=== PATIENT | female | born 1965 | race Caucasian/White ===

== ENCOUNTER 2016-06-02 19:10 | Emergency (ER) | payer MEDICAID, OTHER ==
[~2016-06-02] VITALS: Ht 165.1 cm; Wt 124.7 kg
[~2016-06-02 19:10] MED LIST: NAPR-576 PO
[2016-06-02 19:25] VITALS: BP 178/109; PULSE 76; RESP 18; TEMP 98.1; O2SAT 99
[2016-06-02 19:46] VITALS: BP 176/84; PULSE 78; RESP 16; O2SAT 99
[2016-06-02] MEDS ORDERED: TRAZ300T2 PO (19:49)
[2016-06-02] MEDS ORDERED: LAMO200T PO (20:15)
[2016-06-02] MEDS ORDERED: PERM5CRE11 TOPICAL (20:42)
[2016-06-02] MEDS ORDERED: TRIAM.1%T TOPICAL (20:42)
--- NOTE | 2016-06-02 20:50 | PD ---
HPI Chief Complaint: Skin Problem Time Seen by Provider: 20:43 Travel History International Travel<30 days: No Contact w/Intl Traveler<30days: No Traveled to known affect area: No History of Present Illness HPI Patient is a 50-year-old female presenting with vertex skin rash. Presents several weeks. Beginning on the left arm but has been to the right arm, back and right lower extremity. Benadryl and topical anti-itch creams have not helped. No changes in environment or exposure to known allergens. She denies any fever, ENT/URI symptoms, difficulty breathing or cough. She is living in a motel and no one else is having similar symptoms including a partner sleeping in the same bed. She denies any recent travel or tick bites. She does have animals in the motel room but they do not have fleas. PFSH Past Medical History Arthritis: Yes Depression: Yes Diminished Hearing: No GERD: Yes Tetanus Vaccination: Unknown Influenza Vaccination: No ?: Not LMP: NONE SINCE DEC Menopausal: Yes : 2 Para: 2 Past Surgical History Section: Yes (X2) Tonsillectomy: Yes Social History Alcohol Use: Yes (socially beer) Tobacco Use: Yes (4-5 cigs a day) Substance Use: Yes (HX CRACK COCAINE; DENIES USE SINCE 2013) Allergies-Medications (Allergen,Severity, Reaction): Coded Allergies: No Known Allergies (Verified , 06/02/16) Reported Meds & Prescriptions Reported Meds & Active Scripts Active Elimite Topical (Permethrin) 5% Cream 1 Applic TOPICAL ONCE Apply from head to toe overnight and leave on for at least 8 hours and wash off in the morning, may repeat in 14 days if symptoms still present Triamcinolone Topical (Triamcinolone Acetonide) 0.1 % Oint 1 Applic TOPICAL BID PRN [address] on the face, neck or groin Reported Lamotrigine 200 Mg Tab 200 Mg PO BID Trazodone (Trazodone HCl) 300 Mg Tab 300 Mg PO HS Review of Systems General / Constitutional: No: Fever, Chills HENT: No: Headaches, Vertigo, Lightheadedness, Sore Throat, Congestion, Earache Cardiovascular: No: Chest Pain or Discomfort Respiratory: No: Cough, Shortness of Breath, Wheezing, Stridor Skin: Positive Other (see the history of present illness) Neurologic: No: Weakness Physical Exam Narrative GENERAL: Well-developed and well-nourished adult female in no acute distress. SKIN: Patient has multiple macular papular lesions to the bilateral forearms minor excoriations. No interdigital area lesions. Some lesions on the right ankle and on the abdomen and lower back. Lower back lesions have a characteristic of either flea or bedbug bites. No signs of cellulitis. Warm and dry. Good turgor without tenting. HEAD: Normocephalic and atraumatic. EYES: PERRL bilaterally, 5mm. EOMI bilaterally. No injection or icterus present. No proptosis. Lids without edema or erythema. ENT: Buccal mucosa pink and moist. Oropharynx free of erythema, tonsillar hypertrophy, masses, swelling, asymmetry and exudates. Uvula midline and airway patent. NECK: Supple, no meningeal signs. Trachea midline, no JVD. No cervical or facial lymphadenopathy. CARDIOVASCULAR: Regular rate and rhythm without murmurs, rubs, clicks or gallops. Radial and posterior tibial pulses 2+ bilaterally. No pedal edema. RESPIRATORY: Clear to auscultation bilaterally with symmetrical rise and fall, no distress or use of accessory muscles. MUSCULOSKELETAL: No gait disturbances. Patient freely moving all four extremities spontaneously. Extremities without clubbing, cyanosis, or edema. No obvious deformities. NEUROLOGIC: CN II-XII grossly intact. Awake and alert. Motor grossly within normal limits. Normal speech. PSYCHIATRIC: Appropriate mood and affect; insight and judgment normal. *Patient was examined in the presence of a nurse, Casandra, at all times* Data Data Last Documented VS Vital Signs Date Time Temp Pulse Resp B/P Pulse Ox O2 Delivery O2 Flow Rate FiO2 06/02/16 19:46 78 16 176/84 99 06/02/16 19:25 98.1 [facility] Medical Decision Making Medical Screen Exam Complete: Yes Emergency Medical Condition: Yes Differential Diagnosis Insect bite reaction versus bedbugs versus fleas versus scabies versus dermatitis versus allergic reaction Narrative Course Patient is a 50-year-old female with a pruritic rash consistent with local insect bite reaction. Increased work of breathing, no systemic symptoms. She is afebrile and nontoxic appearing. States is from fleas or bedbugs. Given that she is in a motel I will cover her with Elimite cream as well. Given a triamcinolone ointment to help with itching. Recommend washing all clothing and bedding and follow-up with PCP or her pharmaceutical laboratory technician.See discharge paperwork for further instructions. The plan was discussed with the patient who acknowledged their understanding and agreement. Reinforced the follow-up with primary care is critically important. Patient instructed on emergent conditions that should prompt return to ED. Diagnosis Primary Impression: Insect bite Qualified Code: W57.XXXA - Insect bite, initial encounter Patient Instructions: Bed Bugs (ED), General Instructions Additional Instructions: Take medications as prescribed Avoid scratching or picking at lesions Wash skin with cool water and mild soap daily Recommend washing all clothing and bedding in the hottest water settings available Follow-up with PCP or her pharmaceutical laboratory technician in 2 days Return to the ED for any acute worsening of symptoms Med/Other Pt SpecificInfo: Prescription(s) given Scripts Permethrin Topical (Elimite Topical)5% Cream1 Applic TOPICAL ONCE #1 TUBE Apply from head to toe overnight and leave on for at least 8 hours and wash off in the morning, may repeat in 14 days if symptoms still present Prov:Barbie Hill DO 06/02/16 Triamcinolone Topical 0.1 % Oint1 Applic TOPICAL BID PRN (ITCHING) [address] on the face, neck or groin Prov:Barbie Hill DO 06/02/16 Disposition: 01 DISCHARGE HOME Condition: Stable Bandar Saucedo III Jun 02, 2016 20:50
== END 2016-06-02 22:07 | disposition home or self-care (01) ==
LOC: PHEFT 19:10
DX: S50.862A Insect bite (nonvenomous) of left forearm, initial encounter (principal); S50.861A Insect bite (nonvenomous) of right forearm, initial encounter; S90.561A Insect bite (nonvenomous), right ankle, initial encounter; S30.861A Insect bite (nonvenomous) of abdominal wall, initial encounter; S30.860A Insect bite (nonvenomous) of lower back and pelvis, initial encounter; Z72.0 Tobacco use; Z87.39 Personal history of other diseases of the musculoskeletal system and connective tissue; Z86.59 Personal history of other mental and behavioral disorders; Z87.19 Personal history of other diseases of the digestive system; W57.XXXA Bitten or stung by nonvenomous insect and other nonvenomous arthropods, initial encounter
CPT/HCPCS: 99282

== ENCOUNTER 2016-06-18 15:23 | Emergency (ER) | payer MEDICAID, OTHER ==
[~2016-06-18] VITALS: Ht 165.1 cm; Wt 119.6 kg
[~2016-06-18 15:23] MED LIST changes: +LAMO200T PO; -NAPR-576 PO; +PERM5CRE11 TOPICAL; +TRAZ300T2 PO; +TRIAM.1%T TOPICAL
[2016-06-18 15:27] VITALS: BP 140/86; PULSE 81; RESP 16; TEMP 98; O2SAT 97
[2016-06-18 15:53] LABS: BLOOD, URINE TRACE (NEG); GLUCOSE,URINE NEG (NEG); KETONE, URINE NEG (NEG); NITRITE,URINE NEG (NEG); PH, URINE 5.5 (5.0-8.5)
[2016-06-18 15:59] LABS: METHOD OF COLLECTION CLEAN CATCH; URINE COLOR YELLOW (YELLW/STRAW); WBC, URINE 0-2 /hpf (0-5)
[2016-06-18 16:00] LABS: BACTERIA, URINE MOD /hpf; SQUAMOUS EPITHELIAL CELL URINE > 8 /hpf (0-5)
[2016-06-18 16:02] LABS: COMMENT (UR) CULTURE INDICATED; CULTURE IF INDICATED CULTURE INDICATED
[2016-06-18] MEDS ORDERED: PROT40TA PO (16:43)
[2016-06-18] MEDS ORDERED: ZOFR4TAB PO (16:43)
--- NOTE | 2016-06-18 16:43 | PD ---
HPI Chief Complaint: GI Complaint Time Seen by Provider: 16:25 Travel History International Travel<30 days: No Contact w/Intl Traveler<30days: No Traveled to known affect area: No History of Present Illness HPI 50-year-old female here for evaluation of nausea, vomiting, and diarrhea. Symptoms have been going on for last 3 days. The patient states that she actually feels improved today, however her work is requiring her to have a work note to return to work. She has had some reflux-type symptoms for which she is taking Pepto-Bismol with only mild relief of symptoms. Mild intermittent abdominal cramping. History of 2 sections, no other abdominal surgeries. She has not noted any fevers or chills. Emesis and bowel movements are nonbloody. No chest pain or dyspnea. The patient reports similar symptoms in the past and believes she may have the flu. PFSH Past Medical History Arthritis: Yes Depression: Yes Diminished Hearing: No GERD: Yes Influenza Vaccination: Yes ?: Not LMP: MENOPAUSE Menopausal: Yes : 2 Para: 2 Past Surgical History Section: Yes (X2) Tonsillectomy: Yes Social History Alcohol Use: Yes (socially beer) Tobacco Use: Yes (4-5 cigs a day) Substance Use: Yes (HX CRACK COCAINE; DENIES USE SINCE 2013) Allergies-Medications (Allergen,Severity, Reaction): Coded Allergies: No Known Allergies (Verified , 06/18/16) Reported Meds & Prescriptions Reported Meds & Active Scripts Active No Active Prescriptions or Reported Medications Review of Systems Except as stated in HPI: all other systems reviewed are Neg Physical Exam Narrative GENERAL: Well-developed, well-nourished, comfortable, no acute distress. SKIN: Warm and dry. HEAD: Atraumatic. Normocephalic. EYES: Pupils equal and round. No scleral icterus. No injection or drainage. ENT: Mucous membranes pink and moist. NECK: Trachea midline. No JVD. CARDIOVASCULAR: Regular rate and rhythm. No murmur appreciated. RESPIRATORY: No accessory muscle use. Clear to auscultation. Breath sounds equal bilaterally. GASTROINTESTINAL: Abdomen soft, non-tender, nondistended. MUSCULOSKELETAL: No obvious deformities. No clubbing. No cyanosis. No edema. NEUROLOGICAL: Awake and alert. No obvious cranial nerve deficits. Motor grossly within normal limits. Normal speech. PSYCHIATRIC: Appropriate mood and affect; insight and judgment normal. Data Data Last Documented VS Vital Signs Date Time Temp Pulse Resp B/P Pulse Ox O2 Delivery O2 Flow Rate FiO2 06/18/16 15:27 98.0 81 16 140/86 97 Orders Urinalysis - C+S If Indicated (06/18/16 15:36) Ed Urine Pregnancytest Poc (06/18/16 15:36) Urine Culture (06/18/16 15:42) Labs Laboratory Tests Test 06/18/16 15:42 Urine Collection Type CLEAN CATCH Urine Color YELLOW Urine Turbidity CLEAR Urine pH 5.5 Urine Specific [place] 1.030 Urine Protein TRACE mg/dL Urine Glucose (UA) NEG mg/dL Urine Ketones NEG mg/dL Urine Occult Blood TRACE Urine Nitrite NEG Urine Bilirubin NEG Urine Leukocyte Esterase NEG Urine RBC 4-9 /hpf Urine WBC 0-2 /hpf Urine Squamous Epithelial > 8 /hpf Cells Urine Amorphous Sediment FEW Urine Bacteria MOD /hpf Microscopic Urinalysis Comment CULTURE INDICATED Urine Collection Time 15:42 MDM Medical Decision Making Medical Screen Exam Complete: Yes Emergency Medical Condition: Yes Medical Record Reviewed: Yes Differential Diagnosis Gastroenteritis, influenza, viral illness, UTI, dehydration Narrative Course Vital signs show heart rate 81, blood pressure 140/86, pulse ox 97% on room air , oral temp of 98F. The patient is very well-appearing and she is resting comfortably. Her abdominal exam is benign. She tells me that she is mainly here to have a work note to return to work tomorrow. She states although her symptoms of it going on for last 3 days, she is having some improvement today and feels like she may be able to return to work tomorrow. Clinically she is not dehydrated. Plan is to discharge her home with a prescription for Zofran and Protonix. PMD follow- up this week. Patient informed on when to return to the emergency department. Diagnosis Primary Impression: Gastroenteritis Referrals: Primary Care Physician 3 days Additional Instructions: Follow-up with a primary care physician this week. Stay hydrated with plenty of fluids. Return to the emergency department for worsening symptoms or any other concerns. Scripts Ondansetron (Zofran)4 Mg Tab4 Mg PO Q8HR PRN (NAUSEA OR VOMITING) #15 TAB Ref 0 Prov:Erik Durham MD 06/18/16 Pantoprazole (Protonix)40 Mg Tab40 Mg PO DAILY #30 TAB Ref 0 Prov:Erik Durham MD 06/18/16 Disposition: 01 DISCHARGE HOME Condition: Stable Erik Durham MD Jun 18, 2016 16:43
== END 2016-06-18 16:58 | disposition home or self-care (01) ==
LOC: PHED 15:23 → PHEFT 16:58
DX: K52.9 Noninfective gastroenteritis and colitis, unspecified (principal)
CPT/HCPCS: 81001; 84703; 87086; 99284

== ENCOUNTER 2016-08-08 22:44 | Emergency (ER) | payer MEDICAID, OTHER ==
[~2016-08-08 22:44] MED LIST changes: -LAMO200T PO; -PERM5CRE11 TOPICAL; +PROT40TA PO; -TRAZ300T2 PO; -TRIAM.1%T TOPICAL; +ZOFR4TAB PO
[2016-08-08 22:55] VITALS: BP 135/79; PULSE 80; RESP 20; TEMP 99; O2SAT 97
--- NOTE | 2016-08-10 14:02 | EKG ---
Date Performed: 08/08/2016 Time Performed: 23:09:02 PTAGE: 50 years EKG: Sinus rhythm . Since previous tracing, no significant change noted Normal ECG PREVIOUS TRACING : 12/31/2015 08.38 DOCTOR: Yuridia Huff Interpretating Date/Time 08/10/2016 14:01:32
== END 2016-08-09 01:37 | disposition left against medical advice (07) ==
LOC: PHED 22:44
DX: R12 Heartburn (principal); Z53.21 Procedure and treatment not carried out due to patient leaving prior to being seen by health care provider
CPT/HCPCS: 93005; 99281

== ENCOUNTER 2016-09-29 17:41 | Emergency (ER) | payer MEDICAID, OTHER ==
[~2016-09-29] VITALS: Ht 165.1 cm; Wt 122.0 kg
[2016-09-29 17:54] VITALS: BP 138/94; PULSE 78; RESP 16; TEMP 98.1; O2SAT 97
[2016-09-29] MEDS ORDERED: ROBA500T PO (18:56)
[2016-09-29] MEDS ORDERED: IBUP800T23 PO (18:56)
--- NOTE | 2016-09-29 18:56 | PD ---
HPI Chief Complaint: Musculoskeletal Complaint Time Seen by Provider: 18:30 Travel History International Travel<30 days: No Contact w/Intl Traveler<30days: No Traveled to known affect area: No History of Present Illness HPI 50-year-old female presents emergency department for evaluation of left low back pain radiating down into the left leg. She reports history of arthritis and commonly has pain in most of her joints. She denies any injury. She reports the pain has been present for about 4 days. She denies any numbness or tingling in the legs, incontinence, difficulty ambulating or weakness of any extremity. She describes the pain as aching/burning originating in the left low back radiating down the leg, severity 5 out of 10. Reports she is not taking any current medications. PFSH Past Medical History Arthritis: Yes Depression: Yes Diminished Hearing: No GERD: Yes ?: Not Menopausal: Yes : 2 Para: 2 Past Surgical History Section: Yes (X2) Tonsillectomy: Yes Social History Alcohol Use: Yes (socially beer) Tobacco Use: Yes (4-5 cigs a day) Substance Use: No (HX CRACK COCAINE; DENIES USE SINCE 2013) Allergies-Medications (Allergen,Severity, Reaction): Coded Allergies: No Known Allergies (Verified , 09/29/16) Reported Meds & Prescriptions Reported Meds & Active Scripts Active No Active Prescriptions or Reported Medications Review of Systems Except as stated in HPI: all other systems reviewed are Neg Physical Exam Narrative GENERAL: [-Alert, well-nourished female in no acute distress.] SKIN: Focused skin assessment warm/dry. No rashes. HEAD: Atraumatic. Normocephalic. EYES: Pupils equal and round. No scleral icterus. No injection or drainage. ENT: No nasal bleeding or discharge. Mucous membranes pink and moist. NECK: Trachea midline. No JVD. CARDIOVASCULAR: Regular rate and rhythm. No murmur appreciated. RESPIRATORY: No accessory muscle use. Clear to auscultation. Breath sounds equal bilaterally. GASTROINTESTINAL: Abdomen soft, non-tender, nondistended. Hepatic and splenic margins not palpable. BACK: No midline spinal tenderness. Tender to the left lumbar paraspinous muscles. Negative straight leg raise. MUSCULOSKELETAL: No obvious deformities. No clubbing. No cyanosis. No edema. 2+ distal pulses. Normal sensation in lower extremity. 2+ DTRs. Normal dorsiflexion and plantarflexion. NEUROLOGICAL: Awake and alert. No obvious cranial nerve deficits. Motor grossly within normal limits. Normal speech. PSYCHIATRIC: Appropriate mood and affect; insight and judgment normal. Data Data Last Documented VS Vital Signs Date Time Temp Pulse Resp B/P Pulse Ox O2 Delivery O2 Flow Rate FiO2 09/29/16 17:54 98.1 78 16 138/94 97 MDM Medical Decision Making Medical Screen Exam Complete: Yes Emergency Medical Condition: Yes Differential Diagnosis Lumbar strain, sciatica, leg pain Narrative Course 50-year-old female with past medical history arthritis reports a 4 day history of left low back pain radiating down into the left leg. She denies incontinence , numbness or weakness, or change in sensation of the left extremity. Physical exam is consistent with sciatica. Patient will be put on NSAIDs and muscle relaxers instructed to follow with her primary care doctor Diagnosis Primary Impression: Sciatica Qualified Code: M54.32 - Sciatica of left side Referrals: Primary Care Physician Patient Instructions: General Instructions, Sciatica (ED) Scripts Methocarbamol (Robaxin)500 Mg [id number] Mg PO TID PRN (MUSCLE SPASM) #12 TAB Prov:Deonna Byrd 09/29/16 Ibuprofen 800 Mg [id number] Mg PO Q8H PRN (Pain/Inflammation) #30 TAB Prov:Deonna Byrd 09/29/16 Disposition: 01 DISCHARGE HOME Condition: Stable Deonna Byrd September 29, 2016 18:56
== END 2016-09-29 19:10 | disposition home or self-care (01) ==
LOC: PHED 17:41 → PHEFT 19:10
DX: M54.32 Sciatica, left side (principal); F32.9 Major depressive disorder, single episode, unspecified; K21.9 Gastro-esophageal reflux disease without esophagitis; M19.90 Unspecified osteoarthritis, unspecified site; F17.210 Nicotine dependence, cigarettes, uncomplicated
CPT/HCPCS: 99283

== ENCOUNTER 2017-05-05 12:12 | Emergency (ER) | payer MEDICAID ==
[~2017-05-05] VITALS: Ht 162.6 cm; Wt 116.4 kg
[~2017-05-05 12:12] MED LIST changes: +IBUP1TAB7 PO; -PROT40TA PO; +ROBA500T PO; -ZOFR4TAB PO
[2017-05-05 12:20] VITALS: BP 139/67; PULSE 76; RESP 18; TEMP 98; O2SAT 95
[2017-05-05] MEDS ORDERED: OMEP20TA93 PO (12:42)
[2017-05-05] MEDS ORDERED: MOBI15TA PO (12:42)
[2017-05-05] MEDS ORDERED: CYCL10TA PO (12:42)
[2017-05-05] MEDS ORDERED: OSEL75 PO (12:50)
[2017-05-05] MEDS ORDERED: ALBU6.7H INH (12:50)
[2017-05-05] MEDS ORDERED: AZIT250T3 PO (12:50)
[2017-05-05] MEDS ORDERED: BENZ100 PO (12:50)
--- NOTE | 2017-05-05 12:51 | PD ---
HPI Chief Complaint: Cold / Flu Symptoms Time Seen by Provider: 12:24 Travel History International Travel<30 days: No Contact w/Intl Traveler<30days: No Traveled to known affect area: No History of Present Illness HPI 51-year-old female arrives with cough congestion and fever for 2-1/2 days or so. She reports a chronic cough for 3 months. The fever is only 3 days old. Her daughter has similar symptoms. Associated complaints include sore throat and otalgia. No chest pain. PFSH Past Medical History Arthritis: Yes Depression: Yes Diminished Hearing: No GERD: Yes Influenza Vaccination: Yes ?: Not Menopausal: Yes : 2 Para: 2 Past Surgical History Section: Yes (X2) Tonsillectomy: Yes Social History Alcohol Use: Yes (socially beer) Tobacco Use: No Substance Use: No (HX CRACK COCAINE; DENIES USE SINCE 2013) Allergies-Medications (Allergen,Severity, Reaction): Coded Allergies: No Known Allergies (Verified Adverse Reaction, Unknown, 05/05/17) Reported Meds & Prescriptions Reported Meds & Active Scripts Active Tessalon Perles (Benzonatate) 100 Mg Cap 100 Mg PO TID PRN 10 Days Tamiflu (Oseltamivir Phosphate) 75 Mg Cap 75 Mg PO BID 7 Days Proventil Hfa 6.7 GM Inh (Albuterol Sulfate) 90 Mcg/Act Aer 2 Puff INH Q6H PRN Azithromycin 250 Mg Tab 250 Mg PO DIRECTED Take 2 tabs (500 mg) on day 1 then 1 tab daily x 4 days. Reported Flexeril (Cyclobenzaprine HCl) 10 Mg Tab 10 Mg PO TID Mobic (Meloxicam) 15 Mg Tab 15 Mg PO DAILY Omeprazole 20 Mg Tab 20 Mg PO DAILY Review of Systems Except as stated in HPI: all other systems reviewed are Neg General / Constitutional: Positive: Fever Physical Exam Narrative GENERAL: 42-year-old female pleasant no acute distress SKIN: Focused skin assessment warm/dry. HEAD: Atraumatic. Normocephalic. EYES: Pupils equal and round. No scleral icterus. No injection or drainage. ENT: No nasal bleeding or discharge. Mucous membranes pink and moist. Posterior oropharynx widely patent pink no exudate or asymmetry. NECK: Trachea midline. No JVD. CARDIOVASCULAR: Regular rate and rhythm. No murmur appreciated. RESPIRATORY: No accessory muscle use. Clear to auscultation. Breath sounds equal bilaterally. GASTROINTESTINAL: Abdomen soft, non-tender, nondistended. Hepatic and splenic margins not palpable. MUSCULOSKELETAL: No obvious deformities. No clubbing. No cyanosis. No edema. NEUROLOGICAL: Awake and alert. No obvious cranial nerve deficits. Motor grossly within normal limits. Normal speech. PSYCHIATRIC: Appropriate mood and affect; insight and judgment normal. Data Data Last Documented VS Vital Signs Date Time Temp Pulse Resp B/P (MAP) Pulse Ox O2 Delivery O2 Flow Rate FiO2 05/05/17 12:42 Room Air 05/05/17 12:20 98.0 76 18 139/67 (91) 95 Orders Orders Ed Discharge Order (05/05/17 12:51) MDM Medical Decision Making Medical Screen Exam Complete: Yes Emergency Medical Condition: Yes Medical Record Reviewed: Yes Differential Diagnosis influenza, pneumonia, bronchitis Narrative Course Vital Signs Date Time Temp Pulse Resp B/P (MAP) Pulse Ox O2 Delivery O2 Flow Rate FiO2 05/05/17 12:42 Room Air 05/05/17 12:20 98.0 76 18 139/67 (91) 95 We'll cover the patient with scripts as below with concern for influenza and possible risk for superinfection. Diagnosis Primary Impression: Viral syndrome Additional Impression: Bronchitis Med/Other Pt SpecificInfo: Prescription(s) given Scripts Benzonatate (Tessalon Perles) 100 Mg Cap 100 MG PO TID Y for COUGH for 10 Days, CAP 0 Refills Prov: Dustin Tanner MD 05/05/17 Oseltamivir (Tamiflu) 75 Mg Cap 75 MG PO BID for Mgmt Viral Infection for 7 Days, #14 CAP 0 Refills Prov: Dustin Tanner MD 05/05/17 Albuterol 6.7 GM Inh (Proventil Hfa 6.7 GM Inh) 90 Mcg/Act Aer 2 PUFF INH Q6H Y for SHORTNESS OF BREATH, #1 INHALER 0 Refills Prov: Dustin Tanner MD 05/05/17 Azithromycin (Azithromycin) 250 Mg Tab 250 MG PO DIRECTED for Infection, #6 TAB 0 Refills Take 2 tabs (500 mg) on day 1 then 1 tab daily x 4 days. Prov: Dustin Tanner MD 05/05/17 Disposition: 01 DISCHARGE HOME Condition: Stable Dustin Tanner MD May 05, 2017 12:51
== END 2017-05-05 13:34 | disposition home or self-care (01) ==
LOC: PHED 12:12
DX: J20.8 Acute bronchitis due to other specified organisms (principal); M19.90 Unspecified osteoarthritis, unspecified site; F32.9 Major depressive disorder, single episode, unspecified; K21.9 Gastro-esophageal reflux disease without esophagitis
CPT/HCPCS: 99284